=== PATIENT | female | born 1980 | race Caucasian/White ===

== ENCOUNTER → 2023-01-14 | Outpatient (CLI) | payer BC ==
[~2023-01-14] MED LIST: ACHYD1T PO; BIRTH CONTROL PO; DCS100C PO; FERR325C PO; IBP800T PO; LORA1TAB5 PO; PREN1TAB39 PO
== END ==
LOC: LAB FS 14:40
PROVIDERS: ATTEND Registered Nurse Emergency
DX: R60.0 Localized edema (principal); M79.604 Pain in right leg
CPT/HCPCS: 36415; 85379

== ENCOUNTER → 2023-01-15 | Outpatient (CLI) | payer BC ==
--- NOTE | 2023-01-15 17:50 | Diagnostic Imaging Report ---
INDICATION: Right knee pain. Time of Exam: 2:07 PM 3 views of the right knee demonstrate some mild degenerative spurring of the lateral compartment and medial compartment. Joint spaces are well maintained. Articular surfaces are smooth. No fracture or dislocation is identified. No significant knee joint effusion is identified. IMPRESSION: Mild degenerative changes. No acute bony abnormality is detected. Dictated by: Dictated on workstation # [id number]
== END ==
LOC: RAD FS 14:03
PROVIDERS: ATTEND Registered Nurse Emergency
DX: M17.11 Unilateral primary osteoarthritis, right knee (principal)
CPT/HCPCS: 73562

== ENCOUNTER → 2023-01-29 | Outpatient (CLI) | payer BC | LOC: ORTHO 09:36 | PROVIDERS: ATTEND Orthopaedic Surgery | DX: M25.561 Pain in right knee (principal) | CPT/HCPCS: 99213 ==